=== PATIENT | male | born 1960 | race Caucasian/White ===

== ENCOUNTER 2018-10-09 13:20 | Inpatient (IN) | payer MEDICAID ==
[~2018-10-09] VITALS: Ht 167.6 cm; Wt 96.0 kg
--- NOTE | ~2018-10-09 | HEMODYNAMI ---
PATIENT:EBER MAN MEDICAL RECORD: [id number] : 60 [address] [id number] ADMISSION DATE: 10/09/18 Generatedon:10/11/20189:40 Patient name: EBER MAN Patient #: [id number] SSN: : 1960 Date of study: 10/11/2018 Page: Of Hemodynamic Procedure Report Patient Data Patient Demographics Procedure consent was obtained First Name: EBER Gender: Male Last Name: MAGDA : 1960 Patient #: [id number] Age: 57 year(s) Race: Unknown Additional ID: [id number] Contact details Address: [address] [place] [address] State: [place] City: [place] Zip code: [address] Past Medical History Allergies: No known allergies Admission Admission Data Admission Date: 10/09/2018 Admission Time: 16:30 Room #: [facility] Lab Results Lab Result Date: 10/11/2018 Lab Result Time: 6:15 Biochemistry Name Units Result Min Max BUN mg/dl 25 --(----)-* 7 18 Creatinine mg/dl 1.7 --(----)-* 0.6 1.3 CBC Name Units Result Min Max Hematocrit % 34.4 *-(----)-- 42 54 Hemoglobin g/dl 11.2 *-(----)-- 13.5 17.5 Procedure Procedure Types Cath Procedure Diagnostic Procedure LHC LHC w/Coronaries Sedation Charges Moderate Sedation up to 15 minutes PCI Procedure Coronary Stent Coronary Stent Initial Procedure Description Procedure Date Procedure Date: 10/11/2018 Procedure Start Time: 9:23 Procedure End Time: 9:37 Procedure Staff Name Function Kirby Lomeli RT Scrub Roberta Ivory RN Nurse Devon Arguello MD Performing Physician Wilmar Aragon RT Monitor Procedure Data Cath Procedure Fluoroscopy Diagnostic fluoroscopy Total fluoroscopy Time: 2.5 time: 2.5 min min Diagnostic fluoroscopy Total fluoroscopy dose: 946 dose: 946 mGy mGy Contrast Material Contrast Material Type Amount (ml) Isovue 300 138 Entry Location Entry Primary Successful Side Size Upsize Upsize Entry Closure Succes sful Closure Location (Fr) 1 (Fr) 2 (Fr) Remarks Device Remarks Femoral Right 5 Fr 6 Fr Exoseal artery Short Estimated blood loss: 10 ml Diagnostic catheters Device Type Used For End Catheter Placement MULTIPACK Pigtail 5 Fr Procedure catheter MULTIPACK JL 4.0 5Fr Procedure catheter MULTIPACK 3DRC 5Fr Procedure catheter Procedure Complications No complications Procedure Medications Medication Administration Route Dosage Oxygen etCO2 Nasal cannula 3 l/min Lidocaine 2% added to field 20 Heparin Flush Bag added to field 2 bags (1000units/500ml NS) 0.9% NaCl I.V. 100 ml/hr Versed I.V. 1 mg Fentanyl I.V. 50 mcg Heparin Bolus I.V. 4000 units Integrilin (Bolus I.V. 8.5 ml 2mg/ml) Plavix P.O. 600 mg Hemodynamics Rest HGB: 11.2 (g/dl) Heart Rate: 84 (bpm) Snapshots Pre Cath Intra NCS Post Cath Vital Signs Time Heart Resp SPO2 etCO2 NIBP (mmHg) Rhythm Pain Sedation Rate (ipm) (%) (mmHg) Status Level (bpm) 9:10:54 84 34 98 29.6 161/103(120) NSR 0 (11) 10(A) , No pain 9:15:16 78 22 96 34.8 154/110(141) NSR 0 (11) 10(A) , No pain 9:19:38 81 13 97 28.2 160/90(143) NSR 0 (11) 10(A) , No pain 9:25:24 81 23 98 34.9 139/86(128) NSR 0 (11) 10(A) , No pain 9:30:42 83 21 98 34.1 150/83(132) NSR 0 (11) 10(A) , No pain 9:35:02 87 20 96 27.4 154/93(142) NSR 0 (11) 10(A) , No pain Medications Time Medication Route Dose Verified Delivered Reason Notes Effectiveness by by 9:13:51 Oxygen etCO2 3 Devon Granados used for Nasal l/min Saundra Ivory senior wealth advisor cannula 9:13:57 Lidocaine 2% added 20ml Devon Osorio for local to vial Saundra Arguello MD anesthetic field 9:14:08 Heparin Flush added 2 Devon Osorio used for Bag to bags Saundra Arguello MD procedure (1000units/500ml field NS) 9:14:22 0.9% NaCl I.V. 100 Devon Granados Per physician ml/hr Saundra Ivory RN 9:20:17 Versed I.V. 1 mg Devon Granados for sedation Saundra Ivory RN 9:20:23 Fentanyl I.V. 50 Devon Granados for sedation mcg Saundra Ivory RN 9:30:01 Heparin Bolus I.V. 4000 Devon Granados for verifi ed units Saundra Ivory RN anticoagulation with dr arguello 9:31:36 Integrilin I.V. 8.5 Devon Granados for Wasted (Bolus 2mg/ml) ml Saundra Ivory RN antiplatelet 1.5 ml therapy of vial 9:36:37 Plavix P.O. 600 Devon Granados for mg Saundra Ivory RN antiplatelet therapy Procedure Log Time Note 8:42:01 Kirby Lomeli RT(R) sent for patient. Start room use. 8:42:02 Time tracking: Call back (After hours or weekends) 8:42:07 Plan of Care:Hemodynamics will remain stable., Cardiac rhythm will remain stable., Comfort level will be maintained., Respiratory function will remain adequate., Patient/ family verbilizes understanding of procedure., Procedure tolerated without complication., Recovers from procedure without complications.. 9:03:24 Patient received from ICU to CCL 1 Alert and oriented. Tansferred to table in Supine position. 9:03:25 Warm blankets applied, and amparo hugger turned on for patient comfort. 9:03:26 Correct patient and procedure confirmed by team. 9:03:27 Signed procedure consent form obtained from patient. 9:03:30 ECG and BP/O2 sat monitors applied to patient. 9:09:32 Vital chart was started 9:13:00 Baseline sample Acquired. 9:13:21 Rhythm: sinus rhythm 9:13:22 Full Disclosure recording started 9:13:41 H&P Date Dictated: 10/10/2018 Within 30 days and on chart.. 9:13:43 Pre-op teaching completed and patient verbalized understanding. 9:13:43 Pre-procedure instructions explained to patient. 9:13:47 Family unavailable. 9:13:49 Patient NPO since Midnight. 9:13:51 Oxygen 3 l/min etCO2 Nasal cannula was administered by Roberta Ivory RN; used for procedure; 9:13:56 Patient allergic to No known allergies 9:13:57 Lidocaine 2% 20ml vial added to field was administered by Devon Arguello MD; for local anesthetic; 9:13:58 Is the patient allergic to Iodine/contrast media? No. 9:14:00 Is patient on blood thinner?No 9:14:01 Patient diabetic? No. 9:14:03 Previous problem with sedation/anesthesia? No ? 9:14:05 Sleep apnea? No 9:14:05 Snore? Yes 9:14:06 Deviated septum? No 9:14:07 Sticks out tongue? Yes 9:14:07 Opens mouth fully? Yes 9:14:08 Heparin Flush Bag (1000units/500ml NS) 2 bags added to field was administered by Devon Arguello MD; used for procedure; 9:14:11 Airway obstruction? Yes COPD 9:14:13 Dentures? No ? 9:14:18 Pre procedure: right dorsailis pedis pulse 1+ Palpable, but thready & weak; easily obliterated 9:14:22 0.9% NaCl 100 ml/hr I.V. was administered by Roberta Ivory RN; Per physician; 9:14:26 Patient pain scale 0/10 ?. 9:15:26 IV patent on arrival in right IJ with 0.9% NaCl at [facility]. 9:16:01 Lab Result : Hemoglobin 11.2 g/dl 9:16:01 Lab Result : Hematocrit 34.4 % 9:16:01 Lab Result : BUN 25 mg/dl 9:16:01 Lab Result : Creatinine 1.7 mg/dl 9:16:04 Lab results completed and on chart. 9:16:06 Right groin area was prepped with chlora-prep and draped in sterile fashion 9:16:07 Alarms reviewed by R. N. 9:16:08 Sharps counted by scrub and verified by R.N. 9:16:17 Use device set Femoral Dx 9:16:18 ACIST Syringe (86876) opened to sterile field. 9:16:19 Medline Cath Pack ([id number]) opened to sterile field. 9:16:19 Bag Decanter (2001S) opened to sterile field. 9:16:20 ACIST Hand Control (02967) opened to sterile field. 9:16:21 ACIST Manifold (13228) opened to sterile field. 9:16:22 Tegaderm 4 x 4 (1626W) opened to sterile field. 9:16:23 SHEATH 5FR [place] (LQG055) opened to sterile field. 9:16:24 DIAGNOSTIC WIRE .035 260cm J wire (388320) opened to sterile field. 9:16:24 DIAGNOSTIC Multipack 5Fr catheter set (LD8184) opened to sterile field. 9:18:27 Physician arrived 9:18:28 Final Timeout: patient, procedure, and site verified with staff and physician. All members of the team are in agreement. 9:18:28 --------ALL STOP TIME OUT------ 9:18:29 Right groin site verified by team. 9:20:17 Versed 1 mg I.V. was administered by Roberta Ivory RN; for sedation; 9::23 Fentanyl 50 mcg I.V. was administered by Roberta Ivory RN; for sedation; 9:20:52 Maximum allowable Isovue 300 dose 282ml. Physician notified. (300ml for normal creatinines. For patients with creatinine of 1.7 or higher multiply weight(kg) x 5 divided by creatinine.) 9:20:56 Fire Safety Assessment: A--An alcohol-based skin anteseptic being used preoperatively., C--Open oxygen or nitrous oxide is being used., D--An ESU, laser, or fiber-optic light is being used. 9:21:00 Physical assessment completed. ASA score P 3 - A patient with severe systemic disease as per Devon Arguello MD. 9:21:03 Sedation plan: IV Moderate Sedation Medication:Versed, Fentanyl 9:23:36 Zero performed for pressure channel P1 9:23:56 Procedure started. 9:23:59 Local anesthetic to right femoral artery with Lidocaine 2% by Devon Arguello MD.INITIAL ACCESS ONLY 9:24:06 A 5 Fr sheath was inserted into the Right Femoral artery 9:25:17 A MULTIPACK Pigtail 5 Fr catheter was advanced over the wire and used for Procedure. 9:25: LV gram done using ROSA 9:: Injector settings: Ml/sec: 10, Volume: 20, 9:25:23 LV hemodynamics recorded. 9:: EF : 25 % 9:25:30 Catheter exchanged over wire. 9::34 A MULTIPACK JL 4.0 5Fr catheter was advanced over the wire and used for Procedure. 9::33 LCA angiography performed. 9::34 Catheter exchanged over wire. 9::38 A MULTIPACK 3DRC 5Fr catheter was advanced over the wire and used for Procedure. 9:30:01 Heparin Bolus 4000 units I.V. was administered by Roberta Ivory RN; for anticoagulation; verified with dr arguello 9:30:16 Catheter removed. 9:30:35 CHOICE PT Extra Support J 300cm guide wire ([id number]) opened to sterile field. 9:30:35 GUIDE 6FR XBLAD 4.0 catheter ([id number]) opened to sterile field. 9:30:36 SHEATH 6FR [place] (SMU192) opened to sterile field. 9:30:36 INFLATOR Merit BasixCompak (PM8278) opened to sterile field. 9:30:48 Sheath upsized to a 6 Fr Short. 9:30:56 6 Fr XBLAD 4 guide catheter was inserted over the wire 9:31:02 CHOICE PT ES wire advanced. 9:31:36 Integrilin (Bolus 2mg/ml) 8.5 ml I.V. was administered by Roberta Ivory RN; for antiplatelet therapy; Wasted 1.5 ml of vial 9:32:33 Wire advanced across lesion. 9:32:47 Place stent Inflation Number: 1 A INTEGRITY RX 3.0 x 15 stent ([id number]) was prepped and advanced across the Prox LAD. The stent was deployed at 17 OSMAR for 0:10 (min:sec). 9:33:54 Stent catheter was removed intact over wire. 9:33:58 Guide catheter removed. 9:33:58 Wire removed. 9:34:12 Sheath removed intact; hemostasis achieved with Exoseal to the Right Femoral artery. 9:34:14 Procedure ended.(Physican Out) 9:35:49 Fluoroscopy time 02.50 minutes. :35:55 Fluoroscopy dose: 946 mGy 9:35:55 Flurop Dose total: 946 9:35:59 Contrast amount:Isovue 300 138ml. 9:36:00 Sharps counted by scrub and verified by R.N. 9:36:01 Insertion/operative site no bleeding no hematoma. 9:36:03 Post-op/insertion site Right Femoral artery dressed using a 4 x 4 and Tegaderm. 9:36:08 Post right femoral artery:stable, soft, clean and dry 9:36:14 Post Procedure Pulses reassessed and unchanged 9:36:17 Post-procedure physical assessment completed. ASA score P 3 - A patient with severe systemic disease as per Devon Arguello MD. 9:36:24 Post procedure rhythm: unchanged. 9:36:28 Estimated blood loss: 10 ml 9:36:29 Patient needs reinforcement of post procedure teaching. 9:36:29 Post procedure instruction explained to patient.Patient verbalizes understanding. 9:36:37 Plavix 600 mg P.O. was administered by Roberta Ivory RN; for antiplatelet therapy; 9:36:51 Procedure type changed to Cath procedure, Diagnostic procedure, LHC, LHC w/Coronaries, Sedation Charges, Moderate Sedation up to 15 minutes, PCI procedure, Coronary Stent, Coronary Stent Initial 9:37:12 Procedure and supply charges have been captured, reviewed, submitted and are correct. 9:37:15 Procedure Complication : No complications 9:37:17 Vital chart was stopped 9:37:18 See physician's report for complete and final results. 9:37:20 Report given to ICU. 9:37:22 Patient transfered to ICU with Stretcher. 9:37:24 Full Disclosure recording stopped 9:37:24 Procedure ended. 9:37:27 End room use (Document Last) Intervention Summary Intervention Notes Time ActionType Lesion and Equipment Action# Pressure Duration Attributes Used 9:32:47 Place stent Prox LAD INTEGRITY RX 1 17 00:10 3.0 x 15 stent ([id number]) Device Usage Item Name Manufacture Quantity Catalog Number Hospital Part Current Mini [facility] Lot# / Charge Number Stock Stock Serial# Code ACIST Acist 1 42597 234142 267447 899181 20 Syringe [employer] (36809) Systems Inc Bag Decanter Microtek 1 488352 43113 296179 5 () Medical Inc. Medline Cath Medline 1 [id number] 202645 75815 564669 5 Pack ([id number]) ACIST Hand Acist 1 11114 593093 355255 314809 5 Control Medical (06318) Systems Inc ACIST Acist 1 45556 803100 640438 670057 5 Manifold Medical (00417) Systems Inc Tegaderm 4 x 3M 1 1626W 775610 485642 034176 5 4 (1626W) SHEATH 5FR Terumo 1 JME323 340525 673811 277267 5 [place] (YXU875) DIAGNOSTIC Cardinal 1 DZ6273 502668 15839 027734 30 Multipack Health 5Fr catheter set (JR5189) DIAGNOSTIC St [place] 1 066192 900470 452252 098895 30 WIRE .035 260cm J wire (390751) MULTIPACK Cardinal 1 053474 5 Pigtail 5 Fr Health catheter MULTIPACK JL Cardinal 1 920205 5 4.0 5Fr Health catheter MULTIPACK Cardinal 1 817457 5 3DRC 5Fr Health catheter GUIDE 6FR Cardinal 1 [id number] 828434 777690 746045 3 XBLAD 4.0 Health catheter ([id number]) CHOICE PT Norton 1 [id number] 358868 974526 560936 5 Extra Scientific Support J 300cm guide wire (1456594H2) INFLATOR Merit 1 QX7712 716031 427002 931251 15 [facility] Medical BasixCompak (PS1243) SHEATH 6FR Terumo 1 YID772 560713 136427 511697 40 [place] (ZRI028) INTEGRITY RX Medtronic 1 [id number] 054071 721761 585756 5 [id number] 3.0 x 15 stent ([id number]) Signature Audit [place] Stage Time Signature Unsigned Intra-Procedure 10/11/2018 Wilmar Aragon 9:37:56 AM RT(R) Signatures Monitor : Wilmar Aragon RT Signature : Date : Time : [facility] [address] [place] [address]
[~2018-10-09 13:20] MED LIST: LISINOPRIL5 MG PO
[2018-10-09 14:22] LABS: BASOPHILS 0.3 % (0-2); EOSINOPHILS 2.3 % (0-7); HEMATOCRIT 26.2 % (42.0-54.0); HEMOGLOBIN 8.3 g/dL (13.5-17.5); IMMATURE GRANULOCYTES 0.5 % (0-5); LYMPHOCYTES 12.8 % (15-50); MCH 28.1 pg (26.0-34.0); MCHC 31.7 g/dL (31.0-37.0); MCV 88.8 fL (80.0-100.0); MEAN PLATELET VOLUME 10.9 fL (7.4-10.4); MONOCYTES 10.4 % (2-11); NEUTROPHILS 73.7 % (40-80); PLATELET COUNT 247 10x3/uL (130-400); RBC 2.95 10x6/uL (4.20-6.10); RDW 15.2 % (11.5-14.5); WBC 10.9 10x3/uL (4.8-10.8)
[2018-10-09 14:40] LABS: APTT 30.6 SECONDS (22.8-39.4); INR 1.17 (0.85-1.17); PROTIME 14.4 SECONDS (11.6-15.0)
[2018-10-09 14:43] LABS: ALBUMIN 2.5 g/dL (3.4-5.0); ALKALINE PHOSPHATASE 70 U/L (46-116); ALT (SGPT) 29 U/L (10-68); BILIRUBIN - TOTAL 0.31 mg/dL (0.2-1.3); CALC OSMOLALITY 298 mosm/kg (275-300); CALCIUM 8.3 mg/dL (8.5-10.1); CARBON DIOXIDE 29.8 mmol/L (21.0-32.0); CHLORIDE - SERUM 107 mmol/L (98-107); GLUCOSE 120 mg/dL (74-106); POTASSIUM - SERUM 4.3 mmol/L (3.5-5.1); PROTEIN - SERUM 6.1 g/dL (6.4-8.2); SODIUM 141 mmol/L (136-145); UREA NITROGEN 59 mg/dL (7-18); eGFR NON AFRICAN AMERICAN 23 mL/min (90-120)
[2018-10-09 14:58] LABS: AMYLASE - SERUM 47 U/L (25-115); CKMB 2.5 U/L (0.0-3.6); CREATINE KINASE 109 UL (21-232); LIPASE 211 U/L (73-393); MAGNESIUM - SERUM 2.4 mg/dL (1.8-2.4); PRO BNP 4041 pg/mL (0-125)
[2018-10-09 17:55] LABS: % SATURATION 27 % (15-55); IRON 75 ug/dl (35-150); TOTAL IRON BIND CAPACITY 272 ug/dl (260-445); UNSAT IRON BIND CAPACITY 197 ug/dl (150-375)
--- NOTE | 2018-10-09 18:15 | MORECARE ---
CASE MANAGEMENT DISCHARGE SUMMARY PATIENT: EBER MAN UNIT: [id number] ADM DATE: 10/09/18 AGE: 57 : 60 SEX: M ROOM/BED: D.2312 AUTHOR: LUISDOC PHYSICIAN: REFERRING PHYSICIAN: DENYS FRANCO MD DATE OF SERVICE: 10/09/18 Discharge Plan Patient Name: EBER MAN Facility: [facility]:[place] : 1960 Planned Disposition: Home Anticipated Discharge Date: 10/12/18 Discharge Date: Expected LOS: 3 Initial Reviewer: [email or web address] Initial Review Date: 10/09/2018 Generated: 10/09/18 7:15 pm DCP- Discharge Planning Updated by [email or web address]: Karen Wagner on 10/09/18 5:[address] Patient Name: EBER MAN Admission Status: ER Accout number: [id number] Admission Date: 10-09-2018 : 1960 Admission Diagnosis: Attending: DENYS FRANCO Current LOS: 1 Anticipated DC Date: 10-12-2018 Planned Disposition: Home Primary Insurance: UNINSURED DISCOUNT PLAN Discharge Planning Comments: CM met with patient to complete initial dc planning assessment. CM educated patient on the CM role and verbal consent given by patient to complete assessment. Patient lives at home alone and reports he is independent in his care at home. He reports he [facility] but "signed himself out because they didn't know what they were doing". He stated he was there because of his heart. At discharge patient plans to return home and feels this is a safe discharge. CM discussed availability of home health, rehab services, and medical equipment. CM gave patient information on Meals on Wheels with local number to call to set the service up. Patient denied known discharge needs at this time. CM will continue to follow and will assist as needed with dc plans/needs. Ad Clerk: Karen Wagner RN, [facility] DCPIA - Discharge Planning Initial Assessment Updated by [email or web address]: Karen Wagner on 10/09/18 6:12 pm * Is the patient Alert and Oriented? Yes * How many steps to enter\\exit or inside your home? None * PCP the one in Dr. Lopez's office. He has only seen him once. * Preadmission Environment Home Alone * ADLs Independent * Equipment Nebulizer * List name and contact numbers for known caregivers / representatives who currently or will assist patient after discharge: Tonio Figueroa - [facility] - [phone] * Verbal permission to speak to the caregivers and representatives has been obtained from the patient. Yes * Community resources currently utilized None * Additional services required to return to the preadmission environment? No * Can the patient safely return to the preadmission environment? Yes * Has this patient been hospitalized within the prior 30 days at any hospital? Yes Patient Name: EBER MAN Page 11228 at 1815 All edits/amendments must be made on the electronic document DICTATION DATE: 10/09/181814 FISHING GUIDE: PATRICIA 10/09/181814 RPT#: [id number] DC DATE: STATUS: ADM IN [facility] [address] [place] [address] END OF REPORT
[2018-10-09 19:00] VITALS: BP 97/52
[2018-10-09 19:20] VITALS: BP 138/85
[2018-10-09 20:00] VITALS: BP 130/76
[2018-10-09 21:00] VITALS: BP 151/71
[2018-10-09 22:00] VITALS: BP 137/90
[2018-10-09 23:00] VITALS: BP 166/93
[2018-10-09 23:43] LABS: HEMATOCRIT 27.9 % (42.0-54.0); HEMOGLOBIN 8.8 g/dL (13.5-17.5)
[2018-10-10] VITALS (20 sets, daily range): BP systolic 112–178; BP diastolic 71–98; Ht 167.6 cm; Wt 96.0 kg
[2018-10-10 04:29] LABS: APPEARANCE CLOUDY (CLEAR); BILIRUBIN NEGATIVE (NEGATIVE); COLOR PINK (YELLOW); GLUCOSE NEGATIVE (NEGATIVE); KETONE NEGATIVE (NEGATIVE); NITRITE NEGATIVE (NEGATIVE); PROTEIN 1+ mg/dL (NEGATIVE); SPECIFIC GRAVITY 1.015 (1.005-1.020); UROBILINOGEN NORMAL (NORMAL)
[2018-10-10 04:32] LABS: BACTERIA NONE SEEN /hpf (NONE SEEN); EPITHELIAL CELLS NSEEN /hpf (0-5); RED CELLS - URINE >50 /hpf (0-5); WHITE CELLS - URINE RARE /hpf (0-5)
[2018-10-10 06:01] LABS: BASOPHILS 0.2 % (0-2); EOSINOPHILS 3.7 % (0-7); HEMATOCRIT 31.4 % (42.0-54.0); IMMATURE GRANULOCYTES 0.7 % (0-5); LYMPHOCYTES 14.6 % (15-50); MCH 28.3 pg (26.0-34.0); MCHC 31.8 g/dL (31.0-37.0); MONOCYTES 8.6 % (2-11); NEUTROPHILS 72.2 % (40-80); PLATELET COUNT 186 10x3/uL (130-400); RBC 3.53 10x6/uL (4.20-6.10); RDW 15.1 % (11.5-14.5); WBC 8.9 10x3/uL (4.8-10.8)
[2018-10-10 06:04] LABS: INR 1.12 (0.85-1.17); PROTIME 13.9 SECONDS (11.6-15.0)
[2018-10-10 06:14] LABS: ANION GAP 11.2 mmol/L (8-16); CARBON DIOXIDE 27.2 mmol/L (21.0-32.0); CREATININE - SERUM 2.3 mg/dL (0.6-1.3); POTASSIUM - SERUM 4.4 mmol/L (3.5-5.1)
[2018-10-10 10:52] LABS: HEMATOCRIT 31.5 % (42.0-54.0); HEMOGLOBIN 10.1 g/dL (13.5-17.5)
[2018-10-10 17:05] LABS: HEMATOCRIT 31.8 % (42.0-54.0); HEMOGLOBIN 10.4 g/dL (13.5-17.5)
[2018-10-11] VITALS (13 sets, daily range): BP systolic 122–203; BP diastolic 61–144
[2018-10-11 01:24] LABS: HEMATOCRIT 31.5 % (42.0-54.0); HEMOGLOBIN 10.2 g/dL (13.5-17.5)
[2018-10-11 07:16] LABS: BASOPHILS 0.1 % (0-2); EOSINOPHILS 4.5 % (0-7); HEMATOCRIT 34.4 % (42.0-54.0); HEMOGLOBIN 11.2 g/dL (13.5-17.5); IMMATURE GRANULOCYTES 0.9 % (0-5); LYMPHOCYTES 12.7 % (15-50); MCH 28.6 pg (26.0-34.0); MCHC 32.6 g/dL (31.0-37.0); MEAN PLATELET VOLUME 10.9 fL (7.4-10.4); MONOCYTES 12.1 % (2-11); NEUTROPHILS 69.7 % (40-80); PLATELET COUNT 206 10x3/uL (130-400); RBC 3.91 10x6/uL (4.20-6.10); WBC 9.3 10x3/uL (4.8-10.8)
[2018-10-11 07:17] LABS: ANION GAP 9.4 mmol/L (8-16); CALCIUM 8.7 mg/dL (8.5-10.1); CARBON DIOXIDE 29.8 mmol/L (21.0-32.0); POTASSIUM - SERUM 4.2 mmol/L (3.5-5.1)
[2018-10-11 07:18] LABS: CREATININE - SERUM 1.7 mg/dL (0.6-1.3)
[2018-10-11 11:12] LABS: HEMATOCRIT 33.4 % (42.0-54.0); HEMOGLOBIN 10.9 g/dL (13.5-17.5)
[2018-10-11 18:30] LABS: HEMATOCRIT 32.1 % (42.0-54.0); HEMOGLOBIN 10.3 g/dL (13.5-17.5)
[2018-10-11 23:06] LABS: HEMATOCRIT 31.3 % (42.0-54.0); HEMOGLOBIN 10.1 g/dL (13.5-17.5)
[2018-10-12] VITALS: BP 132/70
[2018-10-12 04:00] VITALS: BP 135/49
[2018-10-12 05:09] LABS: BASOPHILS 0.1 % (0-2); EOSINOPHILS 4.8 % (0-7); HEMOGLOBIN 10.3 g/dL (13.5-17.5); IMMATURE GRANULOCYTES 0.6 % (0-5); LYMPHOCYTES 15.7 % (15-50); MCH 28.6 pg (26.0-34.0); MCHC 32.2 g/dL (31.0-37.0); MCV 88.9 fL (80.0-100.0); MEAN PLATELET VOLUME 10.7 fL (7.4-10.4); MONOCYTES 10.1 % (2-11); NEUTROPHILS 68.7 % (40-80); PLATELET COUNT 199 10x3/uL (130-400); RDW 15.2 % (11.5-14.5); WBC 7.8 10x3/uL (4.8-10.8)
[2018-10-12 05:18] LABS: ANION GAP 9.3 mmol/L (8-16); CARBON DIOXIDE 29.1 mmol/L (21.0-32.0); CREATININE - SERUM 1.7 mg/dL (0.6-1.3); POTASSIUM - SERUM 4.4 mmol/L (3.5-5.1)
[2018-10-12 08:16] VITALS: BP 128/70
[2018-10-12 11:58] VITALS: BP 108/78
[2018-10-12] MEDS ORDERED: COREG12.5 MG PO (13:43)
[2018-10-12] MEDS ORDERED: CARAFATE1 G PO (13:43)
[2018-10-12] MEDS ORDERED: PROTONIX40 MG PO (13:45)
[2018-10-12] MEDS ORDERED: PLAVIX75 MG PO (13:46)
[2018-10-12 15:06] VITALS: BP 139/100
--- NOTE | 2018-10-13 10:57 | MORECARE ---
CASE MANAGEMENT DISCHARGE SUMMARY PATIENT: EBER MAN UNIT: [id number] ADM DATE: 10/09/18 AGE: 57 : 60 SEX: M ROOM/BED: D.0188 AUTHOR: SESAR SMITH PHYSICIAN: REFERRING PHYSICIAN: DENYS FRANCO MD DATE OF SERVICE: 10/13/18 Discharge Plan Patient Name: EBER MAN Facility: [facility]:[place] : 1960 Planned Disposition: Home Anticipated Discharge Date: 10/12/18 Discharge Date: 10/12/2018 Expected LOS: 3 Initial Reviewer: [email or web address] Initial Review Date: 10/09/2018 Generated: 10/13/18 9:02 am DCP- Discharge Planning Updated by [email or web address]: Karen Wagner on 10/09/18 5:[address] Patient Name: EBER MAN Admission Status: ER Accout number: [id number] Admission Date: 10-09-2018 : 1960 Admission Diagnosis: Attending: DENYS FRANCO Current LOS: 1 Anticipated DC Date: 10-12-2018 Planned Disposition: Home Primary Insurance: UNINSURED DISCOUNT PLAN Discharge Planning Comments: CM met with patient to complete initial dc planning assessment. CM educated patient on the CM role and verbal consent given by patient to complete assessment. Patient lives at home alone and reports he is independent in his care at home. He reports he was recently in the hospital across [facility] but "signed himself out because they didn't know what they were doing". He stated he was there because of his heart. At discharge patient plans to return home and feels this is a safe discharge. CM discussed availability of home health, rehab services, and medical equipment. CM gave patient information on Meals on Wheels with local number to call to set the service up. Patient denied known discharge needs at this time. CM will continue to follow and will assist as needed with dc plans/needs. Sales Representative Facility Services: Karen Wagner RN, [facility] DCPIA - Discharge Planning Initial Assessment Updated by [email or web address]: Karen Wagner on 10/09/18 6:12 pm * Is the patient Alert and Oriented? Yes * How many steps to enter\\exit or inside your home? None * PCP the one in Dr. Lopez's office. He has only seen him once. * Preadmission Environment Home Alone * ADLs Independent * Equipment Nebulizer * List name and contact numbers for known caregivers / representatives who currently or will assist patient after discharge: Tonio Figueroa - [facility] - [phone] * Verbal permission to speak to the caregivers and representatives has been obtained from the patient. Yes * Community resources currently utilized None * Additional services required to return to the preadmission environment? No * Can the patient safely return to the preadmission environment? Yes * Has this patient been hospitalized within the prior 30 days at any hospital? Yes Last DP export: 10/09/18 5:15 p Patient Name: EBER MAN Page 43213 at 1057 All edits/amendments must be made on the electronic document DICTATION DATE: 10/13/18801 TEMPLATE LAYOUT WORKER: PATRICIA 10/13/18801 RPT#: [id number] DC DATE:10/12/18 STATUS: DIS IN [facility] [address] [place] [address] END OF REPORT
[2018-10-13 11:00] LABS: FOLATE (FOLIC ACID) - SERUM 11.2 ng/mL (>3.0)
--- NOTE | 2018-10-14 14:39 | OP ---
PATIENT NAME: EBER MAN MEDICAL RECORD: [id number] :60 LOCATION:D.M2 D.2118 ADMISSION DATE:10/09/18 SURGEON: BISI RIVERA MD DATE OF OPERATION: 10/11/2018 PROCEDURES: 1. PTCA and stent, LAD. 2. Left heart catheterization. 3. Selective coronary angiography. 4. Left ventriculogram. INDICATION: Angina, coronary artery disease, and cardiomyopathy. PROCEDURE IN DETAIL: After informed consent was obtained with detailed description of risks and benefits as well as alternative therapies, the patient elected to proceed with angiogram and angioplasty. The right femoral area was prepped and draped in normal sterile fashion. The right femoral artery was cannulated via modified Seldinger technique with placement of 6-Malawian sheath. All catheters were exchanged through this sheath. FINDINGS: Left ventriculogram performed in standard 30-degree ROSA view reveals global hypokinesis throughout all segments. Overall ejection fraction is 25%. SELECTIVE CORONARY ANGIOGRAPHY: 1. Left main is with no significant angiographic disease. 2. Left anterior descending has 80% stenosis proximally. 3. Left circumflex is small and nondominant with no significant disease. 4. Right coronary is large and dominant with total occlusion proximally. The distal right coronary fills via bdty-tc-riyhy collateral. RESPIRATORY EQUIPMENT ASSISTANT AND STENT OF THE LAD: The stent used was 3.0 x 15 mm Integrity. Result was 0% residual stenosis. OVERALL IMPRESSION: Successful PTCA and stent of the LAD, going from 75% to 80% initial stenosis to 0% residual. PLAN: Medical management of the chronically totally occluded RCA. TRANSINT:[id number] Voice Confirmation ID: [id number] DOCUMENT ID: [id number] BISI RIVERA MD at 1439 CC: [id number] DICTATION DATE: 10/11/18 0939 CAREER AND TRANSITION TEACHER: 10/11/18 1218 DIS IN 10/12/18 [place] [id number]
--- NOTE | 2018-10-14 14:39 | EC ---
PATIENT:EBER MAN DATE OF SERVICE: 10/09/18 SEX: M MEDICAL RECORD: [id number] DATE OF : [birth year] LOCATION:D.M2 D.211 AGE OF PATIENT: 57 ADMISSION DATE: 10/09/18 REFERRING PHYSICIAN: INTERPRETING PHYSICIAN: BISI ARGUELLO MD ECHOCARDIOGRAM REPORT ECHO CHARGES 4 ECHO COMPLETE Date: 10/10/18 CLINICAL DIAGNOSIS: CP ECHOCARDIOGRAPHIC MEASUREMENTS (adult normal given) AC root (d.<3.7cm) 2.7 cm LV Septum d (<1.2 cm> 1.2 cm Valve Excursion 1.4 cm LV Septum (systole) 1.8 cm Left Atria (s.<4.0cm> 4.3 cm LVPW d(<1.2cm) 1.3 cm RV (d.<2.3cm) 2.3 cm LVPW (sytole) 1.8 cm LV diastole(<5.6CM) 6.8 cm MV E-F(>70mm/sec) cm LV systole 4.9 cm LVOT Diameter 2.4 cm MV exc.(>10mm) cm Est.ejection fraction (50-75%) % DOPPLER: LVIT cm/sec A 107 cm/sec E 72 cm/sec LA cm/sec RVSP 15.7 mmHg LVOT 150 cm/sec AOP1/2T m/s Asc. Ao 175 cm/sec RVOT 91 cm/sec RA cm/sec PA 132 cm/sec AV Gradient Peak 12.3 mmHg AV Mean 7.2 mmHg AV Area 4.0 cm MV Gradient Peak 9.2 mmHg MV Mean 5.6 mmHg MV Area cm COMMENTS: Tetryl Boiling Tub Operator: Jessica [facility] Production Scheduler: 1 Dr. Arguello TAPE# PACS Pericardial Effusion N DATE OF SERVICE: 10/10/2018 FINDINGS: 1. Left ventricular chamber size is dilated. Left ventricular systolic function is markedly reduced. Overall ejection fraction is 20% to 25%. 2. Left atrium is enlarged at 4.3 cm. Right atrium and right ventricular chamber sizes are as well mildly dilated. 3. Valvular structures have normal structure and motion. 4. Doppler interrogation reveals mild mitral regurgitation and mild tricuspid regurgitation. No other valvular insufficiency or stenosis. Pulmonary systolic ECHOCARDIOGRAM REPORT [id number] EBER MAN pressure is estimated at 16 mmHg. 5. No evidence of pericardial effusion or left ventricular thrombus. TRANSINT:[id number] Voice Confirmation ID: [id number] DOCUMENT ID: [id number] BISI ARGUELLO MD at 1439 CC: [id number] DICTATION DATE: 10/11/18 1054 BLOW MOLDER: 10/11/18 1223 DIS IN 10/12/18 [facility] [address] [place] [id number]
--- NOTE | 2018-10-14 14:39 | CN ---
PATIENT NAME:EBER MAN MEDICAL RECORD: [id number] : 60 LOCATION:D. D.2118 ADMIT DATE: 10/09/18 ACCOUNT: [id number] CONSULTING PHYSICIAN: BISI RIVERA MD REFERRING PHYSICIAN: DENYS FRANCO MD DATE OF CONSULTATION: 10/09/2018 CARDIOLOGY CONSULTATION DATE OF SERVICE: 10/09/2018 ADMITTING DIAGNOSES: 1. Angina. 2. Abnormal ECG. 3. Anemia. 4. Gastrointestinal bleed. 5. Hypotension. HISTORY OF PRESENT ILLNESS: Mr. Man presents with chest pain, has significant ST-T abnormalities on his EKG; however, he has been having melanotic stools and his hemoglobin is 8.3. He is hypotensive with a systolic blood pressure of 96 and his heart rate is 80s, sinus. He has not had a history of coronary artery disease. PHYSICAL EXAMINATION: GENERAL APPEARANCE: Well-nourished, well-developed, appears stated age. Level of distress, comfortable. PSYCHIATRIC: Mental status, alert, normal affect. Orientation, oriented to time, place and person. EYES: Lids and conjunctiva, noninjected. No discharge, no pallor. ENT: Lips, teeth, gums, normal dentition. Oropharynx, no cyanosis, no pallor. NECK: Carotid arteries, bilateral normal upstroke, no bruits, no thrills. JUGULAR VEINS: No jugular venous pressure or distention. CERVICAL LYMPH NODES: Nontender, nonenlarged. THYROID: Not enlarged. Nontender. No nodules. LUNGS: Respiratory effort, unlabored. CHEST: Normal curvature. No thoracic deformity. No chest wall tenderness. Percussion, resonant. Auscultation, clear. No wheezes, no rales, no rhonchi. CARDIOVASCULAR: Precordial exam, nondisplaced. No heaves or pericardial thrills. Rate and rhythm, regular. Heart sounds, normal S1, normal S2. No S3, no gallop, no rub. Systolic murmur, not heard. Diastolic murmur, not heard. EXTREMITIES: No cyanosis, no edema. Peripheral pulses, full and equal in all extremities, except as noted. No bruits appreciated. ABDOMEN: Soft, nondistended. Normal aorta. No bruit. Nontender. No masses. Liver, nontender, no hepatomegaly. Spleen, nontender, no splenomegaly. MUSCULOSKELETAL: No joint tenderness. No joint swelling. No erythema. NEUROLOGICAL: Normal gait, normal strength, normal tone. SKIN: Warm and dry. OVERALL IMPRESSION: Active gastrointestinal bleed with anemia causing demand ischemia and angina. No diarrhea. Has hemodynamically significant coronary artery disease, but until he is stable from a gastrointestinal standpoint we cannot proceed with coronary angiography, hence at this time no significant workup will be undertaken from the standpoint of ischemic heart disease other than echocardiogram to get an ejection fraction in the near future when he is CONSULT REPORT [id number] EBER MAN stable from the standpoint of the gastrointestinal bleed, we will proceed with coronary angiography at that time. TRANSINT:[id number] Voice Confirmation ID: [id number] DOCUMENT ID: [id number] BISI RIVERA MD at 1439 CC: [id number] DICTATION DATE: 10/09/18 1550 ARTIFICIAL LIMB FITTER: 10/09/18 1607 DIS IN 10/12/18 [facility] [address] [place] [address]
== END 2018-10-12 15:37 | disposition home or self-care (01) | DRG 982 ==
LOC: D.ER 13:20 → D.ICU 16:30 → D.M2 16:30 → D.EDHOLD 16:30 → D.ICU 17:14 → D.M2 10-11 18:24
PROVIDERS: Emergency Medicine; Internal Medicine Gastroenterology; Internal Medicine Interventional Cardiology; ADMIT Internal Medicine Nephrology; ATTEND Internal Medicine Nephrology
PROC: 0W3P8ZZ Control Bleeding in Gastrointestinal Tract, Via Natural or Artificial Opening Endoscopic (ICD-10-PCS; principal; 2018-10-10 07:58)
PROC: 4A023N7 Measurement of Cardiac Sampling and Pressure, Left Heart, Percutaneous Approach (ICD-10-PCS; 2018-10-11)
PROC: B2111ZZ Fluoroscopy of Multiple Coronary Arteries using Low Osmolar Contrast (ICD-10-PCS; 2018-10-11)
PROC: B2151ZZ Fluoroscopy of Left Heart using Low Osmolar Contrast (ICD-10-PCS; 2018-10-11)
PROC: 02703DZ Dilation of Coronary Artery, One Artery with Intraluminal Device, Percutaneous Approach (ICD-10-PCS; 2018-10-11 08:42)
DX: K26.4 Chronic or unspecified duodenal ulcer with hemorrhage (principal); N17.9 Acute kidney failure, unspecified; D62 Acute posthemorrhagic anemia; I50.20 Unspecified systolic (congestive) heart failure; F17.203 Nicotine dependence unspecified, with withdrawal; I25.119 Atherosclerotic heart disease of native coronary artery with unspecified angina pectoris; I11.0 Hypertensive heart disease with heart failure; J44.9 Chronic obstructive pulmonary disease, unspecified; K20.9 Esophagitis, unspecified; K44.9 Diaphragmatic hernia without obstruction or gangrene

== ENCOUNTER → 2018-11-12 16:43 | Outpatient (CLI) | payer SELFPAY ==
[2018-10-10 10:15] VITALS: BMI 35.0
[~2018-11-12 16:43] MED LIST changes: +CARAFATE1 G PO; +COREG12.5 MG PO; +PLAVIX75 MG PO; +PROTONIX40 MG PO
== END | disposition home or self-care (01) ==
LOC: D.LABREF 16:43
PROVIDERS: ATTEND Nurse Practitioner
DX: I25.10 Atherosclerotic heart disease of native coronary artery without angina pectoris (principal)

== ENCOUNTER → 2018-11-17 09:50 | Outpatient (CLI) | payer SELFPAY ==
[2018-10-10 10:15] VITALS: BMI 35.0
[2018-11-17 10:30] LABS: ANION GAP 13.5 mmol/L (8-16); CALCIUM 8.7 mg/dL (8.5-10.1); CARBON DIOXIDE 24.9 mmol/L (21.0-32.0); CREATININE - SERUM 1.8 mg/dL (0.6-1.3); POTASSIUM - SERUM 4.4 mmol/L (3.5-5.1)
== END | disposition home or self-care (01) ==
LOC: D.LAB 09:50
PROVIDERS: ATTEND Nurse Practitioner
DX: I10 Essential (primary) hypertension (principal); I42.9 Cardiomyopathy, unspecified

== ENCOUNTER 2019-01-24 19:18 | Observation (INO) | payer MEDICAID ==
[~2019-01-24] VITALS: Ht 167.6 cm; Wt 86.4 kg
--- NOTE | ~2019-01-24 | HEMODYNAMI ---
PATIENT:JARETT MAN MEDICAL RECORD: [id number] : 60 LOCATION:[facility] D.2120 [facility]# [id number] ADMISSION DATE: 01/24/19 Generatedon:01/25/201915:16 Patient name: JARETT MAN Patient #: [id number] SSN: [id number] : 1960 Date of study: 01/25/2019 Page: Of Hemodynamic Procedure Report Patient Data Patient Demographics Procedure consent was obtained First Name: JARETT Gender: Male Last Name: MAGDA : 1960 Middle Initial: D Age: 58 year(s) Patient #: [id number] Race: Unknown SSN: [id number] Additional ID: [id number] Contact details [address]: [address] [place] [address] State: [place] City: [place] Zip code: [address] Past Medical History Allergies: No known allergies Admission Admission Data Admission Date: 01/24/2019 Admission Time: 21:08 Arrival Date: 01/25/2019 Arrival Time: 0:00 Admit Source: Emergency Insurance Payor: Medicaid department [facility] #: [id number] Room #: D2120 Height (in.): 65.75 BSA: 1.95 (m2) Height (cm.): 167 BMI: 30.84 (kg/m2) Weight (lbs.): 189.6 Weight (kg.): 86 Medications upon Admission Medications Dosage Times Administered Last Remarks per Delivery Day Date and Time Clopidogrel Procedure Procedure Types Cath Procedure Diagnostic Procedure LHC LHC w/Coronaries Sedation Charges Moderate Sedation up to 30 minutes PCI Procedure Coronary Stent Coronary Stent Initial Procedure Description Procedure Date Procedure Date: 01/25/2019 Procedure Start Time: 14:38 Procedure End Time: 15:15 Procedure Staff Name Function Kirby Lomeli RT Scrub Roberta Ivory RN Nurse Juvenal Chávez MD Performing Physician Ana Donaldson RT Scrub Wilmar Aragon RT Monitor Procedure Data Cath Procedure Fluoroscopy Diagnostic fluoroscopy Total fluoroscopy Time: 6 time: 6 min min Diagnostic fluoroscopy Total fluoroscopy dose: dose: 1124 mGy 1124 mGy Contrast Material Contrast Material Type Amount (ml) Isovue 300 122 Entry Location Entry Primary Successful Side Size Upsize Upsize Entry Closure Succes sful Closure Location (Fr) 1 (Fr) 2 (Fr) Remarks Device Remarks Femoral Right 5 Fr Exoseal vein Femoral Right 5 Fr Exoseal artery Estimated blood loss: 10 ml Diagnostic catheters Device Type Used For End Catheter Placement MULTIPACK JL 4.0 5Fr Procedure catheter MULTIPACK 3DRC 5Fr Procedure catheter MULTIPACK Pigtail 5 Fr Procedure catheter Procedure Complications No complications Procedure Medications Medication Administration Route Dosage Oxygen etCO2 Nasal cannula 2 l/min Lidocaine 2% added to field 20 Heparin Flush Bag added to field 2 bags (1000units/500ml NS) 0.9% NaCl I.V. 100 ml/hr Versed I.V. 2 mg Fentanyl I.V. 100 mcg Versed I.V. 1 mg Fentanyl I.V. 50 mcg Versed I.V. 1 mg Fentanyl I.V. 50 mcg Heparin Bolus I.V. 8500 units Plavix P.O. 75 mg Hemodynamics Rest BSA: 1.95 (m2) O2 Consumption: Estimated: 239.11 (ml/min) O2 Consumption indexed : Estimated:122.62 (ml/min/m) Heart Rate: 82 (bpm) Pressure Samples Time Site Value (mmHg) Purpose Heart Use Rate(bpm) 14:50 LV 151/32,41 Snapshot 102 14:50 LV 55/-8,55 EDP 83 14:50 LV 72/2,-12 EDP 88 Gradients Valve Time Site Site Mean SEP/DFP Peak To Heart Use 1 2 (mmHg) (sec/min) Peak Rate (mmHg) (bpm) Aortic 14:51 LV AO 94 Snapshots Pre Cath Intra NCS Post Cath Vital Signs Time Heart Resp SPO2 etCO2 NIBP (mmHg) Rhythm Pain Sedation Rate (ipm) (%) (mmHg) Status Level (bpm) 14:21:25 84 25 97 27.7 161/114(138) NSR 0 (11) 10(A) , No pain 14:25:58 88 19 94 8.9 162/108(135) NSR 0 (11) 10(A) , No pain 14:31:36 90 18 94 20.9 144/107(123) NSR 0 (11) 10(A) , No pain 14:36:02 92 14 93 26.9 133/75(115) NSR 0 (11) 10(A) , No pain 14:40:22 94 15 92 0 139/121(137) NSR 0 (11) 9(A) , No pain 14:44:45 94 14 92 14.2 153/128(147) NSR 0 (11) 9(A) , No pain 14:49:13 92 15 94 11.9 157/123(151) NSR 0 (11) 9(A) , No pain 14:53:33 93 14 94 18.7 148/131(146) NSR 0 (11) 9(A) , No pain 14:57:59 93 15 93 17.2 142/116(135) NSR 0 (11) 9(A) , No pain 15:03:25 93 11 94 17.2 120/101(116) NSR 0 (11) 9(A) , No pain 15:07:41 93 14 93 11.9 122/86(108) NSR 0 (11) 10(A) , No pain 15:11:57 93 13 93 32.2 126/89(112) NSR 0 (11) 10(A) , No pain Medications Time Medication Route Dose Verified Delivered Reason Notes Effectiveness by by 14:26:16 Oxygen etCO2 2 Juvenal Buffie used for Nasal l/min Kyler Ivory RN procedure cannula 14:26:24 Lidocaine 2% added 20ml Juvenal Juvenal for local to vial Kyler Chávez MD anesthetic field 14:26:31 Heparin Flush added 2 Juvenal Juvenal used for Bag to bags Kyler Chávez MD procedure (1000units/500ml field NS) 14:26:39 0.9% NaCl I.V. 100 Juvenal Buffie Per physician ml/hr Kyler Ivory RN 14:30:08 Versed I.V. 2 mg Juvenal Buffie for sedation Kyler Ivory RN 14:30:13 Fentanyl I.V. 100 Juvenal Buffie for sedation mcg Kyler Ivory RN 14:38:39 Versed I.V. 1 mg Juvenal Buffie for sedation Kyler Ivory RN 14:38:43 Fentanyl I.V. 50 Juvenal Buffie for sedation mcg Kyler Ivory RN 14:44:48 Versed I.V. 1 mg Juvenal Buffie for sedation Kyler Ivory RN 14:44:57 Fentanyl I.V. 50 Juvenal Buffie for sedation mcg Kyler Ivory RN 14:56:52 Heparin Bolus I.V. 8500 Juvenal Buffie for verif ied units Kyler Ivory RN anticoagulation with dr chávez 15:09:08 Plavix P.O. 75 mg Juvenal Buffie for Kyler Ivory RN antiplatelet therapy Procedure Log Time Note 12:59:08 Informed consent obtained and on chart 12:59:11 Admit Source: Emergency department 13:02:27 Lab Result : Hemoglobin 13.6 g/dl 13:02:27 Lab Result : Hematocrit 42.1 % 13:02:27 Lab Result : BUN 29 mg/dl 13:02:27 Lab Result : Creatinine 1.8 mg/dl 13:02:33 Patient Weight : 189.6 lbs 13:02:36 Patient Height : 65.75 inches 13:02:42 Insurance Payor : Medicaid 13:02:56 Arrival Date: 01/25/2019 12:00:00 AM 13:03:17 Diagnostic Cath Status : Urgent 13:03:31 ACC Patient presents with Unstable Angina CCS Anginal Class 3--Marked limitation of physical activity, angina occurs with ordinary activity.. 13:03:35 ACCPatient has been prescribed/administered the following anti-anginal medication within the last 2 weeks: Beta Mark 14:00:09 Kirby HOLDEN(R) sent for patient. Start room use. 14:07:21 Time tracking: Regular hours (M-F 7:00 - 5:00) 14:07:25 Plan of Care:Hemodynamics will remain stable., Cardiac rhythm will remain stable., Comfort level will be maintained., Respiratory function will remain adequate., Patient/ family verbilizes understanding of procedure., Procedure tolerated without complication., Recovers from procedure without complications.. 14:11:15 Patient received from Med II to CCL 1 Alert and oriented. Tansferred to table in Supine position. 14:11:17 Warm blankets applied, and amparo hugger turned on for patient comfort. 14:11:18 ECG and BP/O2 sat monitors applied to patient. 14:11:19 Correct patient and procedure confirmed by team. 14:11:21 Pre-op teaching completed and patient verbalized understanding. 14:11:21 Pre-procedure instructions explained to patient. 14:11:30 Family unavailable. 14:11:32 Patient NPO since Midnight. 14:11:38 Patient allergic to No known allergies 14:11:40 Is the patient allergic to Iodine/contrast media? No. 14:11:41 Is patient on blood thinner?Yes 14:11:43 ACC The patient was administered the following blood thiners within the last 24 hours: ACCPlavix 14:11:45 Patient diabetic? No. 14:11:48 Previous problem with sedation/anesthesia? No ? 14:11:53 Snore? No 14:11:55 Sleep apnea? No 14:11:56 Deviated septum? No 14:12:01 Opens mouth fully? Yes 14:12:03 Sticks out tongue? Yes 14:12:07 Airway obstruction? Yes COPD 14:12:10 Dentures? No ? 14:13:45 Lab results completed and on chart. 14:13:55 Pre procedure: right dorsailis pedis pulse 1+ Palpable, but thready & weak; easily obliterated 14:13:57 Patient pain scale 0/10 ?. 14:14:06 IV patent on arrival in right forearm with 0.9% NaCl at [facility]. 14:14:11 Right groin area was prepped with chlora-prep and draped in sterile fashion 14:14:18 Sharps counted by scrub and verified by R.N. 14:14:18 Alarms reviewed by R. N. 14:14:24 Use device set Femoral Dx 14:14:25 Bag Decanter (2001S) opened to sterile field. 14:14:25 ACIST Syringe (57938) opened to sterile field. 14:14:26 Medline Cath Pack ([id number]) opened to sterile field. 14:14:27 ACIST Manifold (34146) opened to sterile field. 14:14:27 ACIST Hand Control (20610) opened to sterile field. 14:14:28 Tegaderm 4 x 4 (1626W) opened to sterile field. 14:14:29 DIAGNOSTIC Multipack 5Fr catheter set (SD2033) opened to sterile field. 14:14:32 EMERALD Guide Wire (502-455) opened to sterile field. 14:14:33 SHEATH 5FR Sylvester (ZYJ780) opened to sterile field. 14:14:55 SHEATH 5FR Sylvester (ARM856) opened to sterile field. 14:19:56 Vital chart was started 14:20:01 Baseline sample Acquired. 14:20:09 Rhythm: unchanged. 14:20:11 Full Disclosure recording started 14:22:37 IV Extension Set opened to sterile field. 14:26:16 Oxygen 2 l/min etCO2 Nasal cannula was administered by Roberta Ivory RN; used for procedure; 14::24 Lidocaine 2% 20ml vial added to field was administered by Juvenal Chávez MD; for local anesthetic; 14::31 Heparin Flush Bag (1000units/500ml NS) 2 bags added to field was administered by Juvenal Chávez MD; used for procedure; 14::39 0.9% NaCl 100 ml/hr I.V. was administered by Roberta Ivory RN; Per physician; 14:29:10 Physician arrived 14:29:11 Final Timeout: patient, procedure, and site verified with staff and physician. All members of the team are in agreement. 14::11 --------ALL STOP TIME OUT------ 14:29:13 Right groin site verified by team. 14:29:17 Fire Safety Assessment: A--An alcohol-based skin anteseptic being used preoperatively., C--Open oxygen or nitrous oxide is being used., D--An ESU, laser, or fiber-optic light is being used. 14:29:20 Physical assessment completed. ASA score P 3 - A patient with severe systemic disease as per Juvenal Chávez MD. 14:30:04 3b) 30-44 Moderately reduced kidney function. 14:30:08 Versed 2 mg I.V. was administered by Roberta Ivory RN; for sedation; 14:30:13 Fentanyl 100 mcg I.V. was administered by Roberta Ivory RN; for sedation; 14:30:20 Maximum allowable contrast dose (3.7 X eGFR X 0.75)113 ml. 14:30:24 Sedation plan: IV Moderate Sedation Medication:Versed, Fentanyl 14:32:49 Zero performed for pressure channel P1 14:38:11 Procedure started. 14:38:14 Local anesthetic to right femoral artery with Lidocaine 2% by Juvenal Chávez MD.INITIAL ACCESS ONLY 14:38:39 Versed 1 mg I.V. was administered by Roberta Ivory RN; for sedation; 14:38:43 Fentanyl 50 mcg I.V. was administered by Roberta Ivory RN; for sedation; 14:39:49 A 5 Fr sheath was inserted into the Right Femoral vein 14:42:52 A 5 Fr sheath was inserted into the Right Femoral artery 14:43:43 A MULTIPACK JL 4.0 5Fr catheter was advanced over the wire and used for Procedure. 14:44:40 LCA angiography performed. 14:44:48 Versed 1 mg I.V. was administered by Roberta Ivory RN; for sedation; 14:44:57 Fentanyl 50 mcg I.V. was administered by Roberta Ivory RN; for sedation; 14:47:41 Catheter exchanged over wire. 14:47:55 A MULTIPACK 3DRC 5Fr catheter was advanced over the wire and used for Procedure. 14:48:10 TUBING High Pressure Extension Tubing (Kyler) ([id number]) opened to sterile field. 14:48:11 BMW 300cm [place] 2 J wire ([id number]) opened to sterile field. 14:48:11 INFLATOR Merit BasixCompak (NC0826) opened to sterile field. 14:48:12 SHEATH 6FR Sylvester (TLF445) opened to sterile field. 14:48:15 RCA angiography performed. 14:48:23 Catheter exchanged over wire. 14:48:28 A MULTIPACK Pigtail 5 Fr catheter was advanced over the wire and used for Procedure. 14:50:07 ACCDominant side:Left 14:50:36 Zero performed for pressure channel P1 14:51:05 LV gram done using ROSA 14:51:08 Injector settings: Ml/sec: 10, Volume: 20, 14:51:12 LV hemodynamics recorded. 14:51:17 EF : 20 % 14:52:23 GUIDE 6FR XBLAD 4.0 catheter ([id number]) opened to sterile field. 14:52:28 Catheter exchanged over wire. 14:52:36 6 Fr XBLAD 4 guide catheter was inserted over the wire 14:52:57 Pre PCI Site: [place] pLAD has 90% stenosis. 14:53:01 ACC Pre-intervention HÉCTOR Flow is 3. 14:56:52 Heparin Bolus 8500 units I.V. was administered by Roberta Ivory RN; for anticoagulation; verified with dr chávez 14:56:52 BMW wire advanced. 14:57:45 Wire advanced across lesion. 14:58:31 Inflate balloon Inflation number: 1 A EMERGE OTW 2.5 x 20 balloon ([id number]) was prepped and advanced across the Prox LAD , then inflated to 14 OSMAR for 0:10 (min:sec) . 15:00:40 Balloon removed over the wire. 15:02:37 Place stent Inflation Number: 2 A IVAN OTW 3.5 x 26 stent ([id number]) was prepped and advanced across the Prox LAD . The stent was deployed at 14 OSMAR for 0:10 (min:sec) . 15:04:43 Stent catheter was removed intact over wire. 15:05:51 Wire removed. 15:05:52 Guide catheter removed. 15:05:57 EXOSEAL 6Fr (EX600) opened to sterile field. 15:06:06 Sheath removed intact; hemostasis achieved with Exoseal to the Right Femoral artery. 15:06:13 EXOSEAL 5Fr (EX500) opened to sterile field. 15:06:25 Sheath removed intact; hemostasis achieved with Exoseal to the Right Femoral vein. 15:06:28 Procedure ended.(Physican Out) 15:08:20 Post PCI Site: [place] pLAD has 0% stenosis. 15:08:25 ACC Post-intervention HÉCTOR Flow is 3. 15:09:00 ACT drawn and resulted at 308 seconds. (normal therapeutic range 180-240 seconds). 15:09:08 Plavix 75 mg P.O. was administered by Roberta Ivory RN; for antiplatelet therapy; 15:10:26 Fluoroscopy time 06.00 minutes. 15:10:29 Fluoroscopy dose: 1124 mGy 15:10:29 Flurop Dose total: 1124 15:10:37 Dose Area Product 86601 mGy/cm. 15:10:46 Contrast amount:Isovue 300 122ml. 15:10:48 Maximum allowable dose exceeded? Yes. 15:10:51 Sharps counted by scrub and verified by R.N. 15:10:52 Insertion/operative site no bleeding no hematoma. 15:10:56 Post-op/insertion site Right Femoral artery dressed using a 4 x 4 and Tegaderm. 15:11:00 Post-op/insertion site Right Femoral vein dressed using a 4 x 4 and Tegaderm. 15:11:06 Post right femoral artery:stable, soft, clean and dry 15:11:14 Post right femoral vein:stable, soft, clean and dry 15:11:20 Post Procedure Pulses reassessed and unchanged 15:11:23 Post-procedure physical assessment completed. ASA score P 2 - A patient with mild systemic disease as per Juvenal Chávez MD. 15:11:25 Post procedure rhythm: unchanged. 15:11:47 Estimated blood loss: 10 ml 15:11:49 Post procedure instruction explained to patient.Patient verbalizes understanding. 15:11:50 Patient needs reinforcement of post procedure teaching. 15:12:29 Procedure type changed to Cath procedure, Diagnostic procedure, LHC, LHC w/Coronaries, Sedation Charges, Moderate Sedation up to 30 minutes, PCI procedure, Coronary Stent, Coronary Stent Initial 15:14:48 Procedure and supply charges have been captured, reviewed, submitted and are correct. 15:14:50 Procedure Complication : No complications 15:14:54 Vital chart was stopped 15:14:55 See physician's report for complete and final results. 15:14:58 Report given to PCU. 15:15:00 Patient transfered to PCU with Stretcher. 15:15:03 Full Disclosure recording stopped 15:15:03 Procedure ended. 15:15:23 ACC-PCI Only Patient was given prescriptions, or instructed by Juvenal Chávez MD to start/continue the following medications upon discharge: Aspirin, Plavix 15:15:25 End room use (Document Last) Intervention Summary Intervention Notes Time ActionType Lesion and Equipment Action# Pressure Duration Attributes Used 14:58:31 Inflate Prox LAD EMERGE OTW 1 14 00:10 balloon 2.5 x 20 balloon ([id number]) 15:02:37 Place stent Prox LAD IVAN OTW 3.5 2 14 00:10 x 26 stent ([id number]) Device Usage Item Name Manufacture Quantity Catalog Number Hospital Part Current M inimal Lot# / Charge Number Stock Stock Serial# Code ACIST Syringe Acist 1 09983 117910 519000 166292 2 0 (83742) Medical Systems Inc Bag Decanter Microtek 1 2002S 105015 24720 142395 5 (2001S) Medical Inc. Medline Cath Medline 1 [id number] 484190 02144 419002 5 Pack ([id number]) ACIST Hand Acist 1 33253 419224 408420 934633 5 Control Medical (74858) Systems Inc ACIST Acist 1 89432 028011 750496 522957 5 Manifold Medical (17916) Systems Inc Tegaderm 4 x 3M 1 1626W 519621 953878 082329 5 4 (1626W) DIAGNOSTIC Cardinal 1 OD7269 132985 35915 362520 3 0 Multipack 5Fr Health catheter set (TY6037) EMERALD Guide Cardinal 1 502-455 110218 006708 173146 5 Wire Health (502-455) SHEATH 5FR Terumo 2 PTC155 959563 148948 775328 5 Sylvester (TFI594) IV Extension Hospira 1 39635-32 341961 17022 522141 5 Set MULTIPACK JL Cardinal 1 116095 5 4.0 5Fr Health catheter MULTIPACK Cardinal 1 946543 5 3DRC 5Fr Health catheter TUBING High Merit 1 [id number] 026824 19519 395960 1 0 Pressure Medical Extension Tubing (Chávez) (PQ4734V) INFLATOR Merit 1 KS3872 169997 551716 661461 1 5 Merit Medical BasixCompak (PH7265) BMW 300cm [place] 1 [id number] 525222 563295 730384 5 [place] 2 J Vascular wire (1570018K) SHEATH 6FR Terumo 1 YHN754 155397 930671 593227 4 0 Sylvester (LTW681) MULTIPACK Cardinal 1 737516 5 Pigtail 5 Fr Health catheter GUIDE 6FR Cardinal 1 [id number] 562752 331588 177272 3 XBLAD 4.0 Health catheter (82533654) EMERGE OTW [place] 1 [id number] 620416 205495 134336 5 [id number] 2.5 x 20 Scientific balloon ([id number]) IVAN OTW 3.5 Medtronic 1 [id number] 256317 7545730 436365 5 [id number] x 26 stent ([id number]) EXOSEAL 6Fr Cardinal 1 EX600 174394 941378 032375 1 0 (EX600) Health EXOSEAL 5Fr Cardinal 1 EX500 437773 401393 133207 1 0 (EX500) Health Signature Audit [place] Stage Time Signature Unsigned Intra-Procedure 01/25/2019 Wilmar Aragon 3:16:36 PM RT(R) Signatures Nurse : Roberta Ivory RN Signature : Date : Time : Performing Physician : Signature : Juvenal Chávez MD Date : Time : Monitor : Wilmar Aragon RT Signature : Date : Time : [address] [place] [address]
[2019-01-24] MEDS ORDERED: FLOMAX0.4 MG PO (20:20)
[2019-01-24] MEDS ORDERED: COREG25 MG PO (20:20)
[2019-01-24 20:21] LABS: BASOPHILS 0.3 % (0-2); EOSINOPHILS 3.2 % (0-7); HEMATOCRIT 42.1 % (42.0-54.0); HEMOGLOBIN 13.6 g/dL (13.5-17.5); IMMATURE GRANULOCYTES 0.3 % (0-5); LYMPHOCYTES 18.2 % (15-50); MCH 27.3 pg (26.0-34.0); MCHC 32.3 g/dL (31.0-37.0); MCV 84.5 fL (80.0-100.0); MONOCYTES 11.2 % (2-11); NEUTROPHILS 66.8 % (40-80); PLATELET COUNT 194 10x3/uL (130-400); RBC 4.98 10x6/uL (4.20-6.10); RDW 15.9 % (11.5-14.5); WBC 7.6 10x3/uL (4.8-10.8)
[2019-01-24] MEDS ORDERED: K-DUR20 MEQ PO (20:21)
[2019-01-24] MEDS ORDERED: BUMEX2 MG PO (20:22)
[2019-01-24] MEDS ORDERED: ENTRESTO 24 MG1 EACH PO (20:22)
[2019-01-24 20:32] LABS: INR 1.16 (0.85-1.17); PROTIME 14.3 SECONDS (11.6-15.0)
[2019-01-24 20:49] LABS: ANION GAP 9.9 mmol/L (8-16); BILIRUBIN - TOTAL 0.35 mg/dL (0.2-1.3); CALCIUM 8.2 mg/dL (8.5-10.1); CARBON DIOXIDE 28.8 mmol/L (21.0-32.0); CREATININE - SERUM 1.9 mg/dL (0.6-1.3); POTASSIUM - SERUM 3.7 mmol/L (3.5-5.1); PROTEIN - SERUM 6.3 g/dL (6.4-8.2)
[2019-01-24 20:51] LABS: MAGNESIUM - SERUM 1.9 mg/dL (1.8-2.4); TROPONIN-I 0.033 ng/mL (0.000-0.060)
[2019-01-24 21:10] VITALS: BP 152/82
[2019-01-24 22:12] VITALS: BP 125/72; Ht 167.6 cm; Wt 86.4 kg
[2019-01-25 02:21] LABS: CKMB 2.6 U/L (0.0-3.6); CREATINE KINASE 74 UL (21-232); TROPONIN-I 0.055 ng/mL (0.000-0.060)
[2019-01-25 04:00] VITALS: BP 138/78
[2019-01-25 08:48] LABS: CKMB 2.6 U/L (0.0-3.6); CREATINE KINASE 86 UL (21-232); TROPONIN-I 0.034 ng/mL (0.000-0.060)
[2019-01-25 08:51] LABS: CALCIUM 8.3 mg/dL (8.5-10.1); CARBON DIOXIDE 24.2 mmol/L (21.0-32.0); CREATININE - SERUM 1.8 mg/dL (0.6-1.3); POTASSIUM - SERUM 4.2 mmol/L (3.5-5.1)
[2019-01-25 11:04] LABS: BASOPHILS 0.1 % (0-2); EOSINOPHILS 2.6 % (0-7); HEMATOCRIT 40.1 % (42.0-54.0); HEMOGLOBIN 13.1 g/dL (13.5-17.5); IMMATURE GRANULOCYTES 0.3 % (0-5); LYMPHOCYTES 14.7 % (15-50); MCH 27.6 pg (26.0-34.0); MCHC 32.7 g/dL (31.0-37.0); MCV 84.6 fL (80.0-100.0); MONOCYTES 8.3 % (2-11); PLATELET COUNT 190 10x3/uL (130-400); RBC 4.74 10x6/uL (4.20-6.10); RDW 15.9 % (11.5-14.5)
[2019-01-25 11:07] LABS: WBC 9.6 10x3/uL (4.8-10.8)
--- NOTE | 2019-01-26 08:35 | MORECARE ---
CASE MANAGEMENT DISCHARGE SUMMARY PATIENT: JARETT MAN UNIT: [id number] ADM DATE: 01/24/19 AGE: 58 : 60 SEX: M ROOM/BED: D.2120 AUTHOR: SESAR SMITH PHYSICIAN: REFERRING PHYSICIAN: KATY CLEMENTE M.D. DATE OF SERVICE: 01/26/19 Discharge Plan Patient Name: JARETT MAN Facility: [facility]:[place] : 1960 Planned Disposition: Home Anticipated Discharge Date: 01/25/19 Discharge Date: 01/25/2019 Expected LOS: 1 Initial Reviewer: [email or web address] Initial Review Date: 01/26/2019 Generated: 01/26/19 9:34 am Patient Name: JARETT MAN Page 11015 at 0835 All edits/amendments must be made on the electronic document DICTATION DATE: 01/26[birth year]1934 [place] REFINISHER: PATRICIA 01/26/1934 RPT#: [id number] DC DATE:01/25/19 STATUS: DIS IN [facility] [address] [place] [address] END OF REPORT
== END 2019-01-25 19:20 | disposition home or self-care (01) ==
LOC: D.ER 19:18 → OBSVTIME 21:08 → D.M2 21:08
PROVIDERS: Family Medicine; ADMIT Internal Medicine Cardiovascular Disease; ATTEND Internal Medicine Cardiovascular Disease
DX: I25.110 Atherosclerotic heart disease of native coronary artery with unstable angina pectoris (principal); I24.9 Acute ischemic heart disease, unspecified

== ENCOUNTER → 2019-01-28 10:04 | Outpatient (CLI) | payer MEDICAID ==
[2019-01-24 22:12] VITALS: BMI 30.7
[~2019-01-28 10:04] MED LIST changes: +BUMEX2 MG PO; +COREG25 MG PO; +ENTRESTO 24 MG1 EACH PO; +FLOMAX0.4 MG PO; +K-DUR20 MEQ PO
--- NOTE | 2019-02-02 09:53 | EC ---
PATIENT:JARETT MAN DATE OF SERVICE: 01/28/19 SEX: M MEDICAL RECORD: [id number] DATE OF : 60 LOCATION:[facility] AGE OF PATIENT: 58 ADMISSION DATE: 01/28/19 REFERRING PHYSICIAN: INTERPRETING PHYSICIAN: BISI ARGUELLO MD ECHOCARDIOGRAM REPORT ECHO CHARGES 4 ECHO COMPLETE Date: 01/28/19 CLINICAL DIAGNOSIS: DYSPNEA/ASSESS EF ECHOCARDIOGRAPHIC MEASUREMENTS (adult normal given) AC root (d.<3.7cm) 3.2 cm LV Septum d (<1.2 cm> 1.9 cm Valve Excursion 1.8 cm LV Septum (systole) 2.3 cm Left Atria (s.<4.0cm> 4.2 cm LVPW d(<1.2cm) 1.4 cm RV (d.<2.3cm) 3.4 cm LVPW (sytole) 2.0 cm LV diastole(<5.6CM) 6.0 cm MV E-F(>70mm/sec) cm LV systole 5.1 cm LVOT Diameter 1.8 cm MV exc.(>10mm) 1.2 cm Est.ejection fraction (50-75%) % DOPPLER: LVIT cm/sec A 113 cm/sec E cm/sec LA cm/sec RVSP 19 mmHg LVOT 90 cm/sec AOP1/2T m/s Asc. Ao 124 cm/sec RVOT 89 cm/sec RA cm/sec PA 125 cm/sec AV Gradient Peak 6.11 mmHg AV Mean 3.67 mmHg AV Area 2.0 cm MV Gradient Peak 5.98 mmHg MV Mean 2.08 mmHg MV Area cm COMMENTS: Cosmetic Account Coordinator: Hue MACIEL Supervisor Tunnel Heading: 1 Dr. Arguello TAPE# PACS Pericardial Effusion N DATE OF SERVICE: FINDINGS: 1. Left ventricular chamber size is mildly dilated. Left ventricular systolic function is moderately reduced, overall ejection fraction of 35% to 40%. 2. Left atrium is enlarged at 4.2 cm. Right atrium and right ventricular chamber sizes are as well mildly dilated. 3. Valvular structures have normal structure and motion. 4. Doppler interrogation reveals mild mitral regurgitation, no other valvular insufficiency or stenosis. ECHOCARDIOGRAM REPORT [id number] JARETT MAN 5. No evidence of pericardial effusion or left ventricular thrombus. TRANSINT:[id number] Voice Confirmation ID: [id number] DOCUMENT ID: [id number] BISI ARGUELLO MD at 0953 CC: [id number] DICTATION DATE: 01/29/19 1215 BRIQUETTE MOLDER: 01/29/19 1243 DEP CLI 01/28/19 [place] [id number] [place] [id number]
== END | disposition home or self-care (01) ==
LOC: D.HCCARDIO 10:04
PROVIDERS: ATTEND Internal Medicine Interventional Cardiology
DX: R06.02 Shortness of breath (principal)

== ENCOUNTER → 2019-09-02 16:00 | Outpatient (CLI) | payer MEDICAID ==
[2019-01-24 22:12] VITALS: BMI 30.7
[2019-09-02 17:13] LABS: LDL-HDL RATIO 2.3 ratio (1.5-3.5)
== END | disposition home or self-care (01) ==
LOC: D.LABREF 16:00
PROVIDERS: ATTEND Internal Medicine Interventional Cardiology
DX: I25.10 Atherosclerotic heart disease of native coronary artery without angina pectoris (principal)